=== PATIENT | male | born 1965 | race African-American/Black ===

== ENCOUNTER 2020-02-04 09:00 | Inpatient (IN) ==
[2020-02-04] MEDS ORDERED: CEFUROXIME INJ 1,500 MG in SYRINGE 1 EACH IV ONE (09:12)
[2020-02-04] MEDS ORDERED: GLUCAGON 1 MG VIAL IM PRN (09:12)
[2020-02-04] MEDS ORDERED: DEXTROSE 50% 25 GM/50 ML VIAL IV PRN (09:12)
[2020-02-04 09:40] LABS: Basophils # 0.1 10*3/uL (0.0-0.2); Basophils % 0.6 % (0.0-0.8); Eosinophils # 0.3 10*3/uL (0.0-0.87); Eosinophils % 3.5 % (0.00-10.9); Hematocrit 43.2 VOL% (42.0-52.0); Hemoglobin 14.5 GM/DL (14.0-18.0); Immature Granulocytes % 0.3 %; Immature Granulocytes Absolute 0.03 #; Lymphocytes # 3.5 10*3/uL (1.4-4.0); Lymphocytes % 36.8 % (21.2-54.2); Mean Corpuscular HGB Conc 33.6 GM/DL (32-36); Mean Corpuscular Volume 86.6 FL (87-102); Mean Platelet Volume 9.1 FL (9.6-12.0); Monocytes % 5.9 % (1.7-12.7); Neutrophils % 52.9 % (38.7-73.9); Platelet Count 242 T/CUMM (130-400); Red Blood Count 4.99 MC/CUMM (3.8-5.5); Red Cell Distribution Width 14.7 % (9.3-17.3); White Blood Count 9.5 T/CUMM (4-12)
[2020-02-04 09:55] LABS: ABG Base Excess -0.5 MMOL/L (-2.5-2.5); ABG Oxygen Saturation 97.4 % (95-100); ABG PCO2 34.7 MM HG (35-48); ABG PH 7.432 (7.35-7.45); ABG PO2 96.7 MM HG (80-95)
[2020-02-04 10:01] LABS: Albumin 3.5 G/DL (3.4-5.0); Bilirubin,Total 0.5 MG/DL (0.2-1.0); Calcium 9.1 MG/DL (8.5-10.1); Osmolality,Calculated 271.4 MOS/KG (273-304); Total Protein 8.3 G/DL (6.4-8.3)
[2020-02-04] MEDS: SODIUM CHLORIDE 0.9% 1,000 ML IV SCH (11:02)
[2020-02-04] MEDS: CHLORHEXIDINE 0.12% ORAL RINSE 60 ML BOTTLE SWISH/SPIT SCH ×2 (11:03→20:53)
[2020-02-04] MEDS ORDERED: NITROGLYCERIN SL 0.4 MG TABLET SL PRN (12:20)
[2020-02-04] MEDS ORDERED: MORPHINE 4 MG/1 ML VIAL IV PRN (12:20)
[2020-02-04] MEDS ORDERED: CLORAZEPATE 7.5 MG TABLET PO PRN (12:20)
[2020-02-04] MEDS ORDERED: ZALEPLON 5 MG CAPSULE PO PRN (12:20)
[2020-02-04] MEDS ORDERED: hydrALAZINE 20 MG/1 ML VIAL IV PRN (12:20)
[2020-02-04] MEDS ORDERED: CHLORHEXIDINE 4% SOLN 118 ML BOTTLE TOP SCH (15:00)
[2020-02-04] MEDS: CHLORHEXIDINE 4% SOLN 118 ML BOTTLE TOP SCH (20:52)
[2020-02-05] MEDS: CHLORHEXIDINE 4% SOLN 118 ML BOTTLE TOP SCH ×4 (00:52→15:52)
[2020-02-05] MEDS ORDERED: PAPAVERINE 60 MG/2 ML VIAL ONE (04:21)
[2020-02-05] MEDS ORDERED: VANCOMYCIN 1,000 MG VIAL ONE (04:22)
[2020-02-05] MEDS ORDERED: VANCOMYCIN 500 MG VIAL ONE (04:22)
[2020-02-05] MEDS ORDERED: CEFUROXIME INJ 1,500 MG in SYRINGE 1 EACH IV ONE (05:00)
[2020-02-05] MEDS ORDERED: FAMOTIDINE 20 MG/2 ML VIAL IV ONE (06:00)
[2020-02-05] MEDS ORDERED: DIAZEPAM 5 MG TABLET PO ONE (06:00)
[2020-02-05] MEDS ORDERED: SODIUM BICARBONATE 50 MEQ/50 ML VIAL IV ONE ×3 (07:17→12:03)
[2020-02-05] MEDS ORDERED: PHENYLEPHRINE DRIP 40 MG/250 ML PREMIX IV ONE (07:17)
[2020-02-05] MEDS ORDERED: NITROPRUSSIDE 50 MG/2 ML VIAL ONE (07:17)
[2020-02-05] MEDS ORDERED: POTASSIUM CHLORIDE RIDER 100 ML IV ONE (07:18)
[2020-02-05] MEDS ORDERED: CALCIUM CHLORIDE 1,000 MG/10 ML SYRINGE IV ONE (07:18)
[2020-02-05] MEDS ORDERED: ALBUMIN 5% 12.5 GM/250 ML VIAL IV ONE ×2 (07:19→11:49)
[2020-02-05 07:49] LABS: ABG Base Excess 0.1 MMOL/L (-2.5-2.5); ABG HCO3 24.6 MMOL/L (20-26); ABG Oxygen Saturation 99.7 % (95-100); ABG PCO2 37.5 MM HG (35-48); ABG TCO2 21.4 MMOL/L (23-27); Glucose Heart Surgery 101 MG/DL (74-106); Hematocrit Heart Surgery 38.3 PERCENT (42-52); Hemoglobin Heart Surgery 12.5 G/DL (14.0-18.0); Ionized Calcium Arterial 1.13 MMOL/L (1.21-1.46); PCO2 Patient Temp Arterial 37.5 MMHG; Patient Temperature 37 CELCIUS; Potassium Heart/CVR 3.1 MMOL/L (3.5-5.1); Sodium Heart/CVR 137 MMOL/L (135-145)
[2020-02-05 08:05] LABS: Apearance,Urine CLEAR (Clear); Bilirubin,Urine Negative (Negative); Blood, Urine Small mg/dL (Negative); Glucose,Urine (UA) Negative (Negative); Ketones,Urine Negative (Negative); Mucus,Urine Occasional /LPF (Occasional); Nitrite,Urine Negative (Negative); Protein,Urine Negative; RBC,Urine 2 /HPF (0-4); Urine Color Yellow (Yellow); Urine Specific Gravity 1.018 (1.001-1.035); WBC,Urine 1 /HPF (0-6)
[2020-02-05] MEDS ORDERED: PHENYLEPHRINE DRIP 20 MG/250 ML PREMIX IV ONE (09:45)
[2020-02-05] MEDS ORDERED: LIDOCAINE 2% 5 ML VIAL ONE ×3 (09:45→12:02)
[2020-02-05] MEDS ORDERED: CALCIUM CHLORIDE 1,000 MG/10 ML VIAL IV ONE ×2 (09:45→11:49)
[2020-02-05] MEDS ORDERED: HEPARIN/NACL 0.9% 2 UNITS/ML 500 ML IV ONE (09:45)
[2020-02-05] MEDS ORDERED: SUFentanil 250 MCG/5 ML AMP ONE (09:46)
[2020-02-05] MEDS ORDERED: SEVOFLURANE 1 UNIT/15 MINUTE INH ONE (09:46)
[2020-02-05] MEDS ORDERED: EPINEPHrine 1 MG/ML VIAL ONE (09:46)
[2020-02-05] MEDS ORDERED: MIDAZOLAM 10 MG/2 ML VIAL ONE (09:46)
[2020-02-05 09:47] LABS: Hematocrit Heart Surgery 24.6 PERCENT (42-52); Hemoglobin Heart Surgery 7.9 G/DL (14.0-18.0); PCO2 Patient Temp Venous 34.4 MM HG; PH Patient Temp Venous 7.453; PO2 Patient Temp Venous 36.3 MM HG; Potassium Heart/CVR 3.8 MMOL/L (3.5-5.1); VBG Base Excess 0.4 MEQ/L (0-4); VBG HCO3 24.5 MEQ/L (24-28); VBG Oxygen Saturation 71.7 %; VBG PCO2 36.1 MMHG (41-51); VBG PH 7.438
[2020-02-05] MEDS ORDERED: MINERAL OIL/PETROLATUM OPH OINT 3.5 GM TUBE ONE (09:47)
[2020-02-05] MEDS ORDERED: NITROGLYCERIN DRIP 50 MG/250 ML BOTTLE IV ONE (09:47)
[2020-02-05] MEDS ORDERED: AMINOCAPROIC ACID 5,000 MG/20 ML VIAL ONE (09:47)
[2020-02-05] MEDS ORDERED: ETOMIDATE 40 MG/20 ML VIAL IV ONE (09:47)
[2020-02-05] MEDS ORDERED: LACTATED RINGERS 1,000 ML IV ONE (09:47)
[2020-02-05] MEDS ORDERED: PHENYLEPHRINE 1 MG/10 ML SYRINGE IV ONE (09:47)
[2020-02-05] MEDS ORDERED: SODIUM CHLORIDE 0.9% 250 ML IV ONE (09:47)
[2020-02-05] MEDS ORDERED: VECURONIUM 10 MG VIAL IV ONE (09:47)
[2020-02-05] MEDS ORDERED: SODIUM CHLORIDE 0.9% 1,000 ML IV ONE (09:47)
[2020-02-05] MEDS ORDERED: GLYCOPYRROLATE 0.4 MG/2 ML VIAL ONE (09:48)
[2020-02-05 10:25] LABS: Hemoglobin Heart Surgery 7.3 G/DL (14.0-18.0); Potassium Heart/CVR 3.6 MMOL/L (3.5-5.1); VBG Base Excess 0.1 MEQ/L (0-4); VBG HCO3 23.8 MEQ/L (24-28); VBG Oxygen Saturation 79.9 %; VBG PCO2 33.7 MMHG (41-51); VBG PH 7.466
[2020-02-05 10:26] LABS: PCO2 Patient Temp Venous 30.9 MM HG; PH Patient Temp Venous 7.496; PO2 Patient Temp Venous 39.1 MM HG
[2020-02-05 10:45] LABS: Hematocrit Heart Surgery 21.5 PERCENT (42-52); Hemoglobin Heart Surgery 6.9 G/DL (14.0-18.0); PCO2 Patient Temp Venous 30.4 MM HG; PH Patient Temp Venous 7.529; PO2 Patient Temp Venous 36.5 MM HG; Potassium Heart/CVR 3.9 MMOL/L (3.5-5.1); VBG Base Excess 2.9 MEQ/L (0-4); VBG HCO3 26.9 MEQ/L (24-28); VBG Oxygen Saturation 82.3 %; VBG PCO2 35.1 MMHG (41-51); VBG PH 7.484; VBG PO2 44.9 MMHG (17-40)
[2020-02-05 11:16] LABS: Hematocrit Heart Surgery 25.7 PERCENT (42-52); Hemoglobin Heart Surgery 8.3 G/DL (14.0-18.0); PCO2 Patient Temp Venous 38.3 MM HG; PH Patient Temp Venous 7.427; PO2 Patient Temp Venous 41.1 MM HG; Potassium Heart/CVR 3.6 MMOL/L (3.5-5.1); VBG Oxygen Saturation 75.7 %; VBG PCO2 38.3 MMHG (41-51); VBG PH 7.427; VBG PO2 41.1 MMHG (17-40)
[2020-02-05] MEDS ORDERED: THROMBIN TOPICAL (RECOMBINANT) 5,000 UNIT VIAL TOP ONE (11:23)
[2020-02-05] MEDS ORDERED: MANNITOL 100 GM/500 ML BAG IV ONE (11:48)
[2020-02-05] MEDS ORDERED: DEXTROSE 5% KCL 20 MEQ 40 MEQ/2,000 ML BAG IV ONE (11:49)
[2020-02-05] MEDS ORDERED: MAGNESIUM SULFATE 5 GM/10 ML VIAL IV ONE (11:49)
[2020-02-05] MEDS ORDERED: HEPARIN 10,000 UNIT/10 ML VIAL ONE (11:49)
[2020-02-05] MEDS ORDERED: methylPREDNISolone SOD SUC 1,000 MG/8 ML VIAL ONE (11:49)
[2020-02-05] MEDS ORDERED: PROTAMINE SULFATE 250 MG/25 ML VIAL IV ONE (11:49)
[2020-02-05] MEDS ORDERED: ALBUMIN 25% 25 GM/100 ML VIAL IV ONE (11:49)
[2020-02-05] MEDS ORDERED: FUROSEMIDE 20 MG/2 ML VIAL ONE (11:50)
[2020-02-05 11:57] LABS: ABG Base Excess -2.6 MMOL/L (-2.5-2.5); ABG HCO3 22.3 MMOL/L (20-26); ABG Oxygen Saturation 95.5 % (95-100); ABG PCO2 38.3 MM HG (35-48); ABG PH 7.382 (7.35-7.45); ABG PO2 93.6 MM HG (80-95); ABG TCO2 23.4 MMOL/L (23-27); Glucose Heart Surgery 182 MG/DL (74-106); Hemoglobin Heart Surgery 8.3 G/DL (14.0-18.0); Ionized Calcium Arterial 1.18 MMOL/L (1.21-1.46); PCO2 Patient Temp Arterial 38.3 MMHG; PH Patient Temp Arterial 7.382; PO2 Patient Temp Arterial 93.6 MM HG; Patient Temperature 37 CELCIUS; Potassium Heart/CVR 2.9 MMOL/L (3.5-5.1); Sodium Heart/CVR 135 MMOL/L (135-145)
[2020-02-05] MEDS ORDERED: POTASSIUM CHLORIDE 20 MEQ/10 ML VIAL ONE (12:03)
[2020-02-05] MEDS ORDERED: PROTAMINE SULFATE 50 MG/5 ML VIAL IV ONE ×2 (12:03→13:13)
[2020-02-05] MEDS ORDERED: VECURONIUM 10 MG VIAL IV PRN ×2 (12:31)
[2020-02-05] MEDS ORDERED: NITROPRUSSIDE 100 MG in DEXTROSE 5% 250 ML IV PRN (12:31)
[2020-02-05] MEDS ORDERED: MORPHINE 10 MG/1 ML VIAL IV PRN (12:31)
[2020-02-05] MEDS ORDERED: INSULIN REGULAR 100 UNIT/ML IV ONE (12:31)
[2020-02-05] MEDS ORDERED: PHENYLEPHRINE DRIP 40 MG/250 ML PREMIX IV PRN (12:31)
[2020-02-05] MEDS ORDERED: MAGNESIUM SULF RIDER 2 GM in PREMIX 1 EACH IV PRN (12:31)
[2020-02-05] MEDS ORDERED: MIDAZOLAM 10 MG/2 ML VIAL IV PRN (12:31)
[2020-02-05] MEDS ORDERED: POTASSIUM CHLORIDE RIDER 10 MEQ in PREMIX 1 EACH IV PRN (12:31)
[2020-02-05] MEDS ORDERED: ONDANSETRON 4 MG/2 ML VIAL IV PRN (12:31)
[2020-02-05] MEDS ORDERED: CHLORHEXIDINE 4% SOLN 118 ML BOTTLE TOP PRN (12:31)
[2020-02-05] MEDS ORDERED: DEXTROSE 50% 25 GM/50 ML VIAL IV PRN ×2 (12:31)
[2020-02-05] MEDS ORDERED: CALCIUM CHLORIDE 1,000 MG/10 ML SYRINGE IV PRN (12:31)
[2020-02-05] MEDS ORDERED: ACETAMINOPHEN 650 MG SUPP RECTAL PRN (12:31)
[2020-02-05] MEDS ORDERED: MAGNESIUM SULF RIDER 4 GM in PREMIX 1 EACH IV PRN (12:31)
[2020-02-05] MEDS ORDERED: INSULIN REGULAR 100 UNIT/ML IV PRN (12:31)
[2020-02-05] MEDS ORDERED: SODIUM CHLORIDE 0.45% 1,000 ML IV SCH (13:00)
[2020-02-05] MEDS ORDERED: INSULIN REGULAR DRIP 100 ML IV SCH (13:00)
[2020-02-05 13:14] LABS: ABG Base Excess 0.4 MMOL/L (-2.5-2.5); ABG HCO3 24.7 MMOL/L (20-26); ABG Oxygen Saturation 96.1 % (95-100); ABG PCO2 42.8 MM HG (35-48); ABG PH 7.383 (7.35-7.45); ABG PO2 83.5 MM HG (80-95); ABG TCO2 23.6 MMOL/L (23-27); Glucose Heart Surgery 192 MG/DL (74-106); Hematocrit Heart Surgery 27.2 PERCENT (42-52); Hemoglobin Heart Surgery 8.8 G/DL (14.0-18.0); Potassium Heart/CVR 3.7 MMOL/L (3.5-5.1)
[2020-02-05 13:19] LABS: Basophils % 0.2 % (0.0-0.8); Eosinophils # 0.3 10*3/uL (0.0-0.87); Eosinophils % 1.6 % (0.00-10.9); Hematocrit 24.9 VOL% (42.0-52.0); Immature Granulocytes % 0.4 %; Immature Granulocytes Absolute 0.07 #; Lymphocytes # 3.1 10*3/uL (1.4-4.0); Lymphocytes % 18.6 % (21.2-54.2); Mean Corpuscular HGB Conc 34.1 GM/DL (32-36); Mean Corpuscular Volume 86.5 FL (87-102); Mean Platelet Volume 9.7 FL (9.6-12.0); Monocytes % 4.9 % (1.7-12.7); Neutrophils % 74.3 % (38.7-73.9); Platelet Count 146 T/CUMM (130-400); Red Blood Count 2.88 MC/CUMM (3.8-5.5); Red Cell Distribution Width 14.5 % (9.3-17.3); White Blood Count 16.8 T/CUMM (4-12)
[2020-02-05] MEDS: POTASSIUM CHLORIDE RIDER 20 MEQ in PREMIX 1 EACH IV PRN ×3 (13:19→20:45)
[2020-02-05 13:20] LABS: Hemoglobin 8.5 GM/DL (14.0-18.0)
[2020-02-05] MEDS: ALBUMIN 5% 12.5 GM in PREMIX 1 EACH IV PRN ×3 (13:20→17:14)
[2020-02-05] MEDS: CHLORHEXIDINE 0.12% ORAL RINSE 60 ML BOTTLE SWISH/SPIT SCH ×2 (13:21→20:46)
[2020-02-05] MEDS: SODIUM CHLORIDE 0.9% 1,000 ML IV SCH (13:21)
[2020-02-05 13:32] LABS: INR 1.4; PT Patient Result 15.2 SECS (9.8-11.9)
[2020-02-05 13:35] LABS: CKMB % 4.3 %
[2020-02-05 13:38] LABS: Albumin 2.8 G/DL (3.4-5.0); Bilirubin,Total 0.9 MG/DL (0.2-1.0); Calcium 8.1 MG/DL (8.5-10.1); Osmolality,Calculated 285.3 MOS/KG (273-304)
[2020-02-05 13:40] LABS: Troponin I 6.59 NG/ML (0.00-0.045)
[2020-02-05] MEDS: SODIUM CHLORIDE 0.45% 1,000 ML IV SCH ×2 (14:34→19:00)
[2020-02-05 15:22] LABS: Glucose Heart Surgery 154 MG/DL (74-106); Hemoglobin Heart Surgery 10.8 G/DL (14.0-18.0); Sodium Heart/CVR 140 MMOL/L (135-145); VBG Base Excess -2.9 MEQ/L (0-4); VBG Oxygen Saturation 53.6 %; VBG PCO2 51.8 MMHG (41-51); VBG PH 7.284; VBG PO2 33.5 MMHG (17-40)
[2020-02-05] MEDS: LACTATED RINGERS 250 ML IV PRN ×4 (15:50→17:44)
[2020-02-05 15:52] LABS: ABG Base Excess -1.8 MMOL/L (-2.5-2.5); ABG HCO3 22.8 MMOL/L (20-26); ABG Oxygen Saturation 91.7 % (95-100); ABG PCO2 42.9 MM HG (35-48); ABG PH 7.352 (7.35-7.45); ABG PO2 64.1 MM HG (80-95); ABG TCO2 21.6 MMOL/L (23-27)
[2020-02-05 16:03] LABS: ABG Base Excess -2.3 MMOL/L (-2.5-2.5); ABG HCO3 22.3 MMOL/L (20-26); ABG Oxygen Saturation 91.5 % (95-100); ABG PCO2 43.2 MM HG (35-48); ABG PH 7.341 (7.35-7.45); ABG PO2 63.8 MM HG (80-95); ABG TCO2 21.5 MMOL/L (23-27); Glucose Heart Surgery 134 MG/DL (74-106); Hematocrit Heart Surgery 29.9 PERCENT (42-52); Hemoglobin Heart Surgery 9.7 G/DL (14.0-18.0); Potassium Heart/CVR 4.1 MMOL/L (3.5-5.1)
[2020-02-05] MEDS: MIDAZOLAM 2 MG/2 ML VIAL IV PRN ×3 (16:54→17:50)
[2020-02-05] MEDS ORDERED: DOBUTamine 500 MG/250 ML PREMIX IV PRN (17:00)
[2020-02-05 17:37] LABS: ABG Base Excess -2.5 MMOL/L (-2.5-2.5); ABG HCO3 22.3 MMOL/L (20-26); ABG Oxygen Saturation 99.1 % (95-100); ABG PCO2 46.1 MM HG (35-48); ABG PH 7.321 (7.35-7.45); ABG TCO2 21.4 MMOL/L (23-27); Glucose Heart Surgery 144 MG/DL (74-106); Hematocrit Heart Surgery 35.1 PERCENT (42-52); Hemoglobin Heart Surgery 11.4 G/DL (14.0-18.0); Potassium Heart/CVR 4.4 MMOL/L (3.5-5.1)
[2020-02-05] MEDS ORDERED: HALOPERIDOL 5 MG/ML AMP IV ONE (18:10)
[2020-02-05] MEDS: MORPHINE 4 MG/1 ML VIAL IV PRN (19:39)
[2020-02-05 20:11] LABS: ABG Base Excess -2.4 MMOL/L (-2.5-2.5); ABG HCO3 22.7 MMOL/L (20-26); ABG Oxygen Saturation 98.7 % (95-100); ABG PCO2 40.4 MM HG (35-48); ABG PH 7.368 (7.35-7.45); ABG PO2 225.3 MM HG (80-95); Glucose Heart Surgery 131 MG/DL (74-106); Hemoglobin Heart Surgery 11.6 G/DL (14.0-18.0); Potassium Heart/CVR 4.4 MMOL/L (3.5-5.1)
[2020-02-05] MEDS ORDERED: FUROSEMIDE 40 MG/4 ML VIAL IV PRN (20:20)
[2020-02-05] MEDS: CEFUROXIME INJ 1,500 MG in SYRINGE 1 EACH IV SCH (20:46)
[2020-02-05 20:50] LABS: CKMB % 4.5 %
[2020-02-05] MEDS ORDERED: CHLORHEXIDINE 0.12% ORAL RINSE 60 ML BOTTLE SWISH/SPIT SCH (21:00)
[2020-02-05 21:01] LABS: Troponin I 5.91 NG/ML (0.00-0.045)
[2020-02-05 21:18] LABS: ABG Base Excess -2.9 MMOL/L (-2.5-2.5); ABG Oxygen Saturation 98.7 % (95-100); ABG PCO2 41.4 MM HG (35-48); ABG PH 7.345 (7.35-7.45); ABG TCO2 20.4 MMOL/L (23-27); Glucose Heart Surgery 138 MG/DL (74-106); Hematocrit Heart Surgery 34.6 PERCENT (42-52); Hemoglobin Heart Surgery 11.2 G/DL (14.0-18.0); Potassium Heart/CVR 4.8 MMOL/L (3.5-5.1)
[2020-02-06] MEDS: MORPHINE 4 MG/1 ML VIAL IV PRN (00:27)
[2020-02-06 00:55] LABS: ABG Base Excess 0.4 MMOL/L (-2.5-2.5); ABG HCO3 24.8 MMOL/L (20-26); ABG PCO2 41.1 MM HG (35-48); ABG PH 7.397 (7.35-7.45); ABG TCO2 22.7 MMOL/L (23-27); Glucose Heart Surgery 135 MG/DL (74-106); Hematocrit Heart Surgery 34.5 PERCENT (42-52); Hemoglobin Heart Surgery 11.2 G/DL (14.0-18.0); Potassium Heart/CVR 4.1 MMOL/L (3.5-5.1)
[2020-02-06] MEDS: POTASSIUM CHLORIDE RIDER 20 MEQ in PREMIX 1 EACH IV PRN ×2 (01:00→04:19)
[2020-02-06 01:32] LABS: ABG Base Excess 0.3 MMOL/L (-2.5-2.5); ABG HCO3 24.7 MMOL/L (20-26); ABG Oxygen Saturation 99.5 % (95-100); ABG PCO2 33.4 MM HG (35-48); ABG PH 7.458 (7.35-7.45); ABG TCO2 21.1 MMOL/L (23-27); Glucose Heart Surgery 132 MG/DL (74-106); Hematocrit Heart Surgery 33.9 PERCENT (42-52); Potassium Heart/CVR 4.8 MMOL/L (3.5-5.1)
[2020-02-06 02:06] LABS: ABG Base Excess 0.1 MMOL/L (-2.5-2.5); ABG HCO3 24.6 MMOL/L (20-26); ABG Oxygen Saturation 99.1 % (95-100); ABG PH 7.416 (7.35-7.45); ABG TCO2 21.9 MMOL/L (23-27); Glucose Heart Surgery 133 MG/DL (74-106); Potassium Heart/CVR 4.4 MMOL/L (3.5-5.1)
[2020-02-06 02:43] LABS: ABG Base Excess 0.1 MMOL/L (-2.5-2.5); ABG HCO3 24.6 MMOL/L (20-26); ABG PCO2 36.2 MM HG (35-48); ABG PH 7.431 (7.35-7.45); ABG TCO2 21.5 MMOL/L (23-27); Glucose Heart Surgery 134 MG/DL (74-106); Hematocrit Heart Surgery 34.4 PERCENT (42-52); Hemoglobin Heart Surgery 11.2 G/DL (14.0-18.0); Potassium Heart/CVR 4.3 MMOL/L (3.5-5.1)
[2020-02-06 03:49] LABS: ABG Base Excess 0.1 MMOL/L (-2.5-2.5); ABG HCO3 24.5 MMOL/L (20-26); ABG PCO2 40.6 MM HG (35-48); ABG PH 7.396 (7.35-7.45); ABG TCO2 22.5 MMOL/L (23-27); Glucose Heart Surgery 136 MG/DL (74-106); Hematocrit Heart Surgery 33.2 PERCENT (42-52); Hemoglobin Heart Surgery 10.8 G/DL (14.0-18.0); Potassium Heart/CVR 4.1 MMOL/L (3.5-5.1)
[2020-02-06 03:55] LABS: Basophils % 0.1 % (0.0-0.8); Hematocrit 30.9 VOL% (42.0-52.0); Hemoglobin 10.7 GM/DL (14.0-18.0); Immature Granulocytes % 0.4 %; Immature Granulocytes Absolute 0.06 #; Lymphocytes # 0.8 10*3/uL (1.4-4.0); Lymphocytes % 6.1 % (21.2-54.2); Mean Corpuscular HGB Conc 34.6 GM/DL (32-36); Mean Corpuscular Volume 89.3 FL (87-102); Mean Platelet Volume 9.8 FL (9.6-12.0); Monocytes % 4.7 % (1.7-12.7); Neutrophils % 88.7 % (38.7-73.9); Platelet Count 88 T/CUMM (130-400); Red Blood Count 3.46 MC/CUMM (3.8-5.5); Red Cell Distribution Width 14.6 % (9.3-17.3); White Blood Count 13.5 T/CUMM (4-12)
[2020-02-06 04:11] LABS: Albumin 3.4 G/DL (3.4-5.0); Bilirubin,Direct 0.19 MG/DL (0.0-0.20); Osmolality,Calculated 290.8 MOS/KG (273-304); Total Protein 5.6 G/DL (6.4-8.3)
[2020-02-06] MEDS: ALBUMIN 5% 12.5 GM in PREMIX 1 EACH IV PRN (04:12)
[2020-02-06 04:53] LABS: Troponin I 9.43 NG/ML (0.00-0.045)
[2020-02-06 05:06] LABS: Hypochromasia Slight
[2020-02-06 05:07] LABS: Microcytosis 1+; Ovalocytes Slight
[2020-02-06 05:08] LABS: Platelet Estimate Decreased
[2020-02-06] MEDS: KETOROLAC 30 MG/1 ML VIAL IV PRN ×2 (06:28→13:02)
[2020-02-06] MEDS: CEFUROXIME INJ 1,500 MG in SYRINGE 1 EACH IV SCH ×2 (08:53→22:03)
[2020-02-06] MEDS: CHLORHEXIDINE 0.12% ORAL RINSE 60 ML BOTTLE SWISH/SPIT SCH ×3 (08:53→22:03)
[2020-02-06] MEDS ORDERED: MAGNESIUM SULF RIDER 2 GM in PREMIX 1 EACH IV PRN (09:19)
[2020-02-06] MEDS ORDERED: MAGNESIUM SULF RIDER 4 GM in PREMIX 1 EACH IV PRN (09:19)
[2020-02-06] MEDS ORDERED: SODIUM CHLOR 0.45% KCL 20 MEQ 20 MEQ/1,000 ML BAG IV SCH (09:19)
[2020-02-06] MEDS ORDERED: MAGNESIUM HYDROXIDE SUSP 30 ML UDCUP PO PRN (09:19)
[2020-02-06] MEDS ORDERED: ACETAMINOPHEN 325 MG TABLET PO PRN (09:19)
[2020-02-06] MEDS ORDERED: DEXTROSE 50% 25 GM/50 ML VIAL IV PRN (09:19)
[2020-02-06] MEDS ORDERED: ONDANSETRON 4 MG/2 ML VIAL IV PRN (09:19)
[2020-02-06] MEDS ORDERED: GLUCAGON 1 MG VIAL IM PRN (09:19)
[2020-02-06] MEDS: ASPIRIN EC 325 MG TABLET PO SCH (10:57)
[2020-02-06] MEDS: DOCUSATE SODIUM 100 MG CAPSULE PO SCH (10:57)
[2020-02-06] MEDS: FERROUS SULFATE 325 MG TABLET PO SCH (10:57)
[2020-02-06] MEDS: PANTOPRAZOLE 40 MG TABLET PO SCH (10:57)
[2020-02-06] MEDS: oxyCODONE/ACETAMINOPHEN 5-325 MG TABLET PO PRN (12:15)
[2020-02-06 13:32] LABS: CKMB % 3.2 %
[2020-02-06 13:35] LABS: Troponin I 9.55 NG/ML (0.00-0.045)
[2020-02-06] MEDS: ALUMINUM/MAGNES/SIMETH MAX STR 30 ML UDCUP PO PRN (22:07)
[2020-02-07] MEDS: ALUMINUM/MAGNES/SIMETH MAX STR 30 ML UDCUP PO PRN (05:53)
[2020-02-07] MEDS: oxyCODONE/ACETAMINOPHEN 5-325 MG TABLET PO PRN (05:53)
[2020-02-07] MEDS ORDERED: FUROSEMIDE 40 MG/4 ML VIAL IV ONE (06:00)
[2020-02-07 06:29] LABS: Basophils % 0.1 % (0.0-0.8); Eosinophils % 0.1 % (0.00-10.9); Hematocrit 24.3 VOL% (42.0-52.0); Immature Granulocytes % 0.4 %; Immature Granulocytes Absolute 0.05 #; Lymphocytes # 1.7 10*3/uL (1.4-4.0); Lymphocytes % 12.4 % (21.2-54.2); Mean Corpuscular HGB Conc 33.7 GM/DL (32-36); Mean Corpuscular Volume 89.3 FL (87-102); Mean Platelet Volume 10.1 FL (9.6-12.0); Monocytes % 6.7 % (1.7-12.7); Neutrophils % 80.3 % (38.7-73.9); Red Cell Distribution Width 14.7 % (9.3-17.3); White Blood Count 13.8 T/CUMM (4-12)
[2020-02-07 06:32] LABS: Hemoglobin 8.2 GM/DL (14.0-18.0); Platelet Count 88 T/CUMM (130-400); Red Blood Count 2.72 MC/CUMM (3.8-5.5)
[2020-02-07 06:47] LABS: Albumin 2.9 G/DL (3.4-5.0); Bilirubin,Direct 0.17 MG/DL (0.0-0.20); Bilirubin,Total 0.5 MG/DL (0.2-1.0); Calcium 7.6 MG/DL (8.5-10.1); Osmolality,Calculated 284.3 MOS/KG (273-304); Total Protein 5.3 G/DL (6.4-8.3)
[2020-02-07 06:56] LABS: Albumin 2.9 G/DL (3.4-5.0); Bilirubin,Direct 0.14 MG/DL (0.0-0.20); Bilirubin,Indirect 0.3 MG/DL (0.0-1.0); Bilirubin,Total 0.4 MG/DL (0.2-1.0); CKMB % 1.7 %; Total Protein 5.3 G/DL (6.4-8.3)
[2020-02-07 06:59] LABS: Troponin I 7.15 NG/ML (0.00-0.045)
[2020-02-07] MEDS ORDERED: SODIUM CHLORIDE 0.9% 1,000 ML IV PRN (07:16)
[2020-02-07] MEDS ORDERED: NICOTINE 14 MG/24 HR PATCH TRANSDERM PRN (08:00)
[2020-02-07] MEDS: CHLORHEXIDINE 0.12% ORAL RINSE 60 ML BOTTLE SWISH/SPIT SCH ×2 (09:08→21:04)
[2020-02-07] MEDS: ASPIRIN EC 325 MG TABLET PO SCH (09:17)
[2020-02-07] MEDS: FERROUS SULFATE 325 MG TABLET PO SCH (09:18)
[2020-02-07] MEDS: PANTOPRAZOLE 40 MG TABLET PO SCH (09:18)
[2020-02-07] MEDS: DOCUSATE SODIUM 100 MG CAPSULE PO SCH (09:18)
[2020-02-07] MEDS: ALBUTEROL/IPRATROPIUM 3 ML NEB RESP TX SCH ×3 (11:31→19:55)
[2020-02-07] MEDS: carvediloL 6.25 MG TABLET PO SCH (21:04)
[2020-02-07] MEDS: SIMVASTATIN 20 MG TABLET PO SCH (21:04)
[2020-02-07] MEDS: KETOROLAC 30 MG/1 ML VIAL IV PRN (21:04)
[2020-02-08] MEDS: ALBUTEROL/IPRATROPIUM 3 ML NEB RESP TX SCH ×6 (00:47→19:50)
[2020-02-08] MEDS: KETOROLAC 30 MG/1 ML VIAL IV PRN ×2 (05:10→21:49)
[2020-02-08 06:10] LABS: Basophils % 0.2 % (0.0-0.8); Eosinophils # 0.1 10*3/uL (0.0-0.87); Eosinophils % 1.2 % (0.00-10.9); Hematocrit 31.6 VOL% (42.0-52.0); Immature Granulocytes % 0.4 %; Immature Granulocytes Absolute 0.04 #; Lymphocytes # 2.6 10*3/uL (1.4-4.0); Mean Corpuscular HGB Conc 34.2 GM/DL (32-36); Mean Corpuscular Volume 89.8 FL (87-102); Mean Platelet Volume 10.1 FL (9.6-12.0); Monocytes % 8.7 % (1.7-12.7); Neutrophils % 63.5 % (38.7-73.9); Red Cell Distribution Width 13.5 % (9.3-17.3)
[2020-02-08 06:31] LABS: Platelet Count 95 T/CUMM (130-400)
[2020-02-08 06:32] LABS: Hemoglobin 10.8 GM/DL (14.0-18.0); Red Blood Count 3.52 MC/CUMM (3.8-5.5)
[2020-02-08 06:33] LABS: Albumin 2.8 G/DL (3.4-5.0); Bilirubin,Direct 0.16 MG/DL (0.0-0.20); Bilirubin,Total 0.9 MG/DL (0.2-1.0); Calcium 7.7 MG/DL (8.5-10.1); Osmolality,Calculated 278.5 MOS/KG (273-304); Total Protein 5.4 G/DL (6.4-8.3)
[2020-02-08 06:34] LABS: Alanine Aminotransferase 18 U/L (16-61); Albumin 2.7 G/DL (3.4-5.0); Alkaline Phosphatase 59 U/L (45-117); Aspartate Amino Transferase 36 U/L (0-37); Total Protein 4.9 G/DL (6.4-8.3)
[2020-02-08] MEDS: POTASSIUM CHLORIDE 20 MEQ TABLET PO PRN ×2 (08:10→09:18)
[2020-02-08] MEDS: ASPIRIN EC 325 MG TABLET PO SCH (09:17)
[2020-02-08] MEDS: PANTOPRAZOLE 40 MG TABLET PO SCH (09:17)
[2020-02-08] MEDS: DOCUSATE SODIUM 100 MG CAPSULE PO SCH (09:17)
[2020-02-08] MEDS: carvediloL 6.25 MG TABLET PO SCH ×2 (09:17→21:47)
[2020-02-08] MEDS: FERROUS SULFATE 325 MG TABLET PO SCH (09:17)
[2020-02-08] MEDS: CHLORHEXIDINE 0.12% ORAL RINSE 60 ML BOTTLE SWISH/SPIT SCH ×2 (09:18→21:47)
[2020-02-08 09:48] LABS: Anisocytosis 1+; Platelet Estimate Decreased
[2020-02-08] MEDS: oxyCODONE/ACETAMINOPHEN 5-325 MG TABLET PO PRN (17:56)
[2020-02-08] MEDS: ZALEPLON 5 MG CAPSULE PO PRN (21:47)
[2020-02-08] MEDS: SIMVASTATIN 20 MG TABLET PO SCH (21:47)
[2020-02-09] MEDS: ALBUTEROL/IPRATROPIUM 3 ML NEB RESP TX SCH ×7 (00:05→23:59)
[2020-02-09 06:31] LABS: Calcium 7.4 MG/DL (8.5-10.1); Osmolality,Calculated 285.1 MOS/KG (273-304)
[2020-02-09 06:37] LABS: Basophils % 0.3 % (0.0-0.8); Eosinophils # 0.2 10*3/uL (0.0-0.87); Eosinophils % 2.2 % (0.00-10.9); Hematocrit 30.7 VOL% (42.0-52.0); Hemoglobin 10.4 GM/DL (14.0-18.0); Immature Granulocytes % 0.4 %; Immature Granulocytes Absolute 0.04 #; Lymphocytes # 2.1 10*3/uL (1.4-4.0); Lymphocytes % 23.6 % (21.2-54.2); Mean Corpuscular HGB Conc 33.9 GM/DL (32-36); Mean Platelet Volume 9.8 FL (9.6-12.0); Monocytes % 8.7 % (1.7-12.7); Neutrophils % 64.8 % (38.7-73.9); Platelet Count 104 T/CUMM (130-400); Red Blood Count 3.41 MC/CUMM (3.8-5.5); Red Cell Distribution Width 13.6 % (9.3-17.3); White Blood Count 8.9 T/CUMM (4-12)
[2020-02-09] MEDS: PANTOPRAZOLE 40 MG TABLET PO SCH (08:53)
[2020-02-09] MEDS: DOCUSATE SODIUM 100 MG CAPSULE PO SCH (08:53)
[2020-02-09] MEDS: ASPIRIN EC 325 MG TABLET PO SCH (08:53)
[2020-02-09] MEDS: oxyCODONE/ACETAMINOPHEN 5-325 MG TABLET PO PRN (08:54)
[2020-02-09] MEDS: CHLORHEXIDINE 0.12% ORAL RINSE 60 ML BOTTLE SWISH/SPIT SCH ×2 (08:54→21:52)
[2020-02-09] MEDS: FERROUS SULFATE 325 MG TABLET PO SCH (08:54)
[2020-02-09] MEDS: carvediloL 6.25 MG TABLET PO SCH ×2 (08:54→21:52)
[2020-02-09] MEDS: lisinopriL 20 MG TABLET PO SCH (10:03)
[2020-02-09] MEDS: ZALEPLON 5 MG CAPSULE PO PRN (21:52)
[2020-02-09] MEDS: SIMVASTATIN 20 MG TABLET PO SCH (21:52)
[2020-02-09] MEDS: KETOROLAC 30 MG/1 ML VIAL IV PRN (21:53)
[2020-02-10] MEDS: ALBUTEROL/IPRATROPIUM 3 ML NEB RESP TX SCH ×5 (05:44→19:39)
[2020-02-10 06:07] LABS: Basophils % 0.2 % (0.0-0.8); Eosinophils # 0.4 10*3/uL (0.0-0.87); Eosinophils % 3.8 % (0.00-10.9); Hemoglobin 10.8 GM/DL (14.0-18.0); Immature Granulocytes % 0.3 %; Immature Granulocytes Absolute 0.03 #; Lymphocytes # 1.9 10*3/uL (1.4-4.0); Lymphocytes % 20.3 % (21.2-54.2); Mean Corpuscular HGB Conc 34.8 GM/DL (32-36); Mean Corpuscular Volume 88.1 FL (87-102); Monocytes % 7.8 % (1.7-12.7); Neutrophils % 67.6 % (38.7-73.9); Platelet Count 143 T/CUMM (130-400); Red Blood Count 3.52 MC/CUMM (3.8-5.5); Red Cell Distribution Width 13.3 % (9.3-17.3); White Blood Count 9.5 T/CUMM (4-12)
[2020-02-10 06:34] LABS: Alanine Aminotransferase 31 U/L (16-61); Albumin 2.6 G/DL (3.4-5.0); Alkaline Phosphatase 69 U/L (45-117); Aspartate Amino Transferase 27 U/L (0-37); Bilirubin,Indirect 0.7 MG/DL (0.0-1.0); Blood Urea Nitrogen 14 MG/DL (7-18); Calcium 8.1 MG/DL (8.5-10.1); Estimated Glom Filtration Rate 125 ML/MIN; Glucose 95 MG/DL (74-106); Osmolality,Calculated 277.5 MOS/KG (273-304); Total Protein 5.7 G/DL (6.4-8.3)
[2020-02-10] MEDS: POLYETHYLENE GLYCOL POWDER 17 GM PACK PO SCH (09:29)
[2020-02-10] MEDS: carvediloL 6.25 MG TABLET PO SCH ×2 (09:29→21:04)
[2020-02-10] MEDS: lisinopriL 20 MG TABLET PO SCH (09:29)
[2020-02-10] MEDS: FERROUS SULFATE 325 MG TABLET PO SCH (09:29)
[2020-02-10] MEDS: PANTOPRAZOLE 40 MG TABLET PO SCH (09:29)
[2020-02-10] MEDS: DOCUSATE SODIUM 100 MG CAPSULE PO SCH (09:29)
[2020-02-10] MEDS: ASPIRIN EC 325 MG TABLET PO SCH (09:29)
[2020-02-10] MEDS: CHLORHEXIDINE 0.12% ORAL RINSE 60 ML BOTTLE SWISH/SPIT SCH ×2 (09:30→21:04)
[2020-02-10] MEDS: oxyCODONE/ACETAMINOPHEN 5-325 MG TABLET PO PRN (21:03)
[2020-02-10] MEDS: SIMVASTATIN 20 MG TABLET PO SCH (21:04)
[2020-02-11] MEDS: ALBUTEROL/IPRATROPIUM 3 ML NEB RESP TX SCH ×7 (01:09→23:02)
[2020-02-11 05:13] LABS: Basophils % 0.4 % (0.0-0.8); Eosinophils # 0.4 10*3/uL (0.0-0.87); Hematocrit 30.8 VOL% (42.0-52.0); Hemoglobin 10.4 GM/DL (14.0-18.0); Immature Granulocytes % 0.5 %; Immature Granulocytes Absolute 0.05 #; Lymphocytes # 2.1 10*3/uL (1.4-4.0); Lymphocytes % 21.2 % (21.2-54.2); Mean Corpuscular HGB Conc 33.8 GM/DL (32-36); Mean Corpuscular Volume 90.1 FL (87-102); Mean Platelet Volume 9.6 FL (9.6-12.0); Monocytes % 10.2 % (1.7-12.7); Neutrophils % 63.7 % (38.7-73.9); Platelet Count 182 T/CUMM (130-400); Red Blood Count 3.42 MC/CUMM (3.8-5.5); Red Cell Distribution Width 13.4 % (9.3-17.3); White Blood Count 9.9 T/CUMM (4-12)
[2020-02-11 05:39] LABS: Calcium 8.3 MG/DL (8.5-10.1); Osmolality,Calculated 275.5 MOS/KG (273-304)
[2020-02-11 05:46] LABS: Alanine Aminotransferase 34 U/L (16-61); Albumin 2.7 G/DL (3.4-5.0); Alkaline Phosphatase 73 U/L (45-117); Aspartate Amino Transferase 23 U/L (0-37); Bilirubin,Indirect 0.8 MG/DL (0.0-1.0); Blood Urea Nitrogen 13 MG/DL (7-18); Calcium 7.9 MG/DL (8.5-10.1); Estimated Glom Filtration Rate 125 ML/MIN; Glucose 82 MG/DL (74-106); Osmolality,Calculated 273.7 MOS/KG (273-304); Total Protein 5.4 G/DL (6.4-8.3)
[2020-02-11] MEDS: carvediloL 6.25 MG TABLET PO SCH ×2 (09:34→21:39)
[2020-02-11] MEDS: FERROUS SULFATE 325 MG TABLET PO SCH (09:34)
[2020-02-11] MEDS: DOCUSATE SODIUM 100 MG CAPSULE PO SCH (09:34)
[2020-02-11] MEDS: lisinopriL 20 MG TABLET PO SCH (09:34)
[2020-02-11] MEDS: POLYETHYLENE GLYCOL POWDER 17 GM PACK PO SCH (09:34)
[2020-02-11] MEDS: ASPIRIN EC 325 MG TABLET PO SCH (09:34)
[2020-02-11] MEDS: PANTOPRAZOLE 40 MG TABLET PO SCH (09:35)
[2020-02-11] MEDS: CHLORHEXIDINE 0.12% ORAL RINSE 60 ML BOTTLE SWISH/SPIT SCH ×2 (09:35→21:39)
[2020-02-11] MEDS ORDERED: lisinopriL 20 MG TABLET PO SCH (11:32)
[2020-02-11] MEDS: SIMVASTATIN 20 MG TABLET PO SCH (21:39)
[2020-02-11] MEDS: oxyCODONE/ACETAMINOPHEN 5-325 MG TABLET PO PRN (21:39)
[2020-02-12] MEDS: ALBUTEROL/IPRATROPIUM 3 ML NEB RESP TX SCH ×2 (02:54→07:21)
[2020-02-12 05:40] LABS: Osmolality,Calculated 272.8 MOS/KG (273-304)
[2020-02-12 08:02] VITALS: BP 143/98
[2020-02-12] MEDS ORDERED: lisinopriL 20 MG TABLET PO SCH (09:00)
[2020-02-12] MEDS: PANTOPRAZOLE 40 MG TABLET PO SCH (09:10)
[2020-02-12] MEDS: FERROUS SULFATE 325 MG TABLET PO SCH (09:10)
[2020-02-12] MEDS: ASPIRIN EC 325 MG TABLET PO SCH (09:10)
[2020-02-12] MEDS: carvediloL 6.25 MG TABLET PO SCH (09:10)
[2020-02-12] MEDS: DOCUSATE SODIUM 100 MG CAPSULE PO SCH (09:10)
[2020-02-12] MEDS: CHLORHEXIDINE 0.12% ORAL RINSE 60 ML BOTTLE SWISH/SPIT SCH (09:11)
[2020-02-12] MEDS: POLYETHYLENE GLYCOL POWDER 17 GM PACK PO SCH (09:11)
== END 2020-02-12 12:07 | disposition home health service (06) | DRG 229 ==
LOC: N.4E 09:00 → N.CVR 02-05 12:30 → N.TELES 02-06 09:05